=== PATIENT | female | born 1980 | race African-American/Black ===

== ENCOUNTER 2018-12-07 14:58 | Emergency (ER) | payer OTHER ==
[~2018-12-07] VITALS: Ht 152.4 cm; Wt 94.8 kg
[2018-12-07] MEDS ORDERED: LASIX 80 MG TAB80 MG PO (15:02)
[2018-12-07] MEDS ORDERED: ALDACTONE100 MG PO (15:02)
[2018-12-07] MEDS ORDERED: CARVEDILOL12.5 MG PO (15:02)
[2018-12-07 15:38] LABS: ABSOLUTE NEUTROPHILS 4.7 thou/uL (1.4-8.2); BASOPHILS 1.2 % (0.0-2.0); EOSINOPHILS 3.9 % (0.0-3.0); HEMATOCRIT 35.7 % (37.0-47.0); HEMOGLOBIN 11.6 gm/dL (12.0-15.0); LYMPHOCYTES 18.5 % (24.0-44.0); MCH 25.5 pg (26.0-34.0); MCHC 32.6 g/dL (28.0-37.0); MCV 78.3 fL (80.0-100.0); MONOCYTES 8.9 % (1.0-8.0); PLATELET COUNT 439 thou/uL (150-400); POLYS 67.5 % (36.0-66.0); RBC 4.56 mil/uL (4.20-5.00); RDW 17.8 % (10.5-14.5)
[2018-12-07 15:47] LABS: ANION GAP 6 mmol/L (7-16); BUN 16 mg/dL (7-18); CALCIUM 8.7 mg/dL (8.5-10.1); CHLORIDE 105 mmol/L (98-107); CO2 27 mmol/L (21-32); CREATININE 0.9 mg/dL (0.6-1.0); GLUCOSE 83 mg/dL (74-106); SODIUM 138 mmol/L (136-145)
[2018-12-07 15:56] LABS: TROPONIN-I <0.06 ng/mL (<0.06)
[2018-12-07] MEDS ORDERED: ENTRESTO 24 MG1 EACH PO (15:56)
[2018-12-07] MEDS ORDERED: AMOXIL 875 MG875 M1 PO (15:57)
[2018-12-07] MEDS ORDERED: SYMBICORT160 MCG/4. INH ×2 (15:59→16:23)
[2018-12-07] MEDS ORDERED: PROVENTIL HFA6.7 G1 INH ×2 (16:00→16:23)
[2018-12-07] MEDS ORDERED: PREDNISONE 20 M20 MG PO (16:23)
--- NOTE | 2018-12-07 16:27 | EKG ---
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 : 1980 Requested By: Renato Tolbert Order Number: [id number] MD: Remberto Goyal Measurements Intervals [place] Rate: 82 P: 47 [place]: 176 QRS: -1 QRSD: 106 T: 20 QT: 411 QTc: 480 Interpretive Statements Sinus rhythm Nonspecific ST-T wave changes Left atrial enlargement Leftward axis No previous ECG available for comparison Electronically Signed On 12-07-2018 16:26:54 PUBLISHING SYSTEMS ANALYST by Remberto Goyal [email or web address] <ELECTRONICALLY SIGNED> By: Remberto Goyal MD 12/07/18 1626 1530 1530 Remberto Goyal MD /EPI
[2018-12-07 16:30] VITALS: BP 109/83
== END 2018-12-07 16:31 | disposition home or self-care (01) ==
LOC: ER 14:58
PROVIDERS: Emergency Medicine
DX: J45.909 Unspecified asthma, uncomplicated (principal); I50.9 Heart failure, unspecified